=== PATIENT | male | born 1970 ===

== ENCOUNTER 2022-11-09 11:30 | Emergency (ER) | payer MEDICAID ==
[~2022-11-09] VITALS: Ht 180.3 cm; Wt 77.1 kg
[~2022-11-09 11:30] MED LIST: Cleocin HCl150 MG PO
== END 2022-11-09 17:24 | disposition home or self-care (01) ==
LOC: ER 11:30
DX: K46.9 Unspecified abdominal hernia without obstruction or gangrene (principal); F17.200 Nicotine dependence, unspecified, uncomplicated; Z88.0 Allergy status to penicillin
CPT/HCPCS: 76857; A9270

== ENCOUNTER 2022-12-25 17:41 | Emergency (ER) | payer OTHER ==
[~2022-12-25] VITALS: Ht 177.8 cm; Wt 77.1 kg
[2022-12-25] MEDS ORDERED: Cleocin HCl150 MG PO (17:48)
== END 2022-12-25 17:53 | disposition home or self-care (01) ==
LOC: ER 17:41
DX: K02.9 Dental caries, unspecified (principal)
CPT/HCPCS: 99283; A9270

== ENCOUNTER 2023-03-29 07:00 | Day surgery (SDC) | payer OTHER ==
[2023-03-29] VITALS (23 sets, daily range): BP systolic 96–144; BP diastolic 62–94
[~2023-03-29] VITALS: Ht 175.3 cm; Wt 78.9 kg
--- NOTE | 2023-03-29 07:25 | NUR ---
PATIENT STATES HE HAS POST-OP RIDE ARRANGED WITH [facility].
--- NOTE | 2023-03-29 14:24 | NUR ---
REPORT RECEIVED FROM TC COUGHLIN. VSS. PT ON SUPPLEMENTAL O2 VIA 3L NC. PT ABLE TO REPOSITION SELF IN BED. PT REQUESTING PO FLUIDS AND TOLERATING THEM WELL. PT REPORTS 4/10 DULL PAIN TO LOWER ABDOMEN. PT DENIES NAUSEA OR OTHER DISCOMFORTS AT THIS TIME. PT DRESSING C/D/I WITHOUT DRAINAGE, REDNESS, OR BLEEDING.
--- NOTE | 2023-03-29 15:24 | NUR ---
Patient up to Ambulate independently. Gait steady. VSS. Discharge instructions reviewed with patient. Patient verbalizes understanding. Copy given to patient to take home. Dressing to procedure site clean, dry, intact with no visible drainage, swelling, erythema or bruising noted. Patient States Post-Procedure ride home has been arranged. PT DENIES PAIN OR DISCOMFORT. Discharged via wheelchair to private car for ride home.
== END 2023-03-29 22:41 | disposition home or self-care (01) ==
LOC: ORSCMMR 07:00 → ORD 08:00 → ORSCMMR 08:00
PROVIDERS: Surgery
PROC: 0YU54JZ Supplement Right Inguinal Region with Synthetic Substitute, Percutaneous Endoscopic Approach (ICD-10-PCS; principal; 2023-03-29 08:00)
PROC: 0DNW4ZZ Release Peritoneum, Percutaneous Endoscopic Approach (ICD-10-PCS; principal; 2023-03-29 08:00)
PROC: 8E0W4CZ Robotic Assisted Procedure of Trunk Region, Percutaneous Endoscopic Approach (ICD-10-PCS; principal; 2023-03-29 08:00)
DX: K40.30 Unilateral inguinal hernia, with obstruction, without gangrene, not specified as recurrent (principal); K66.0 Peritoneal adhesions (postprocedural) (postinfection); F17.210 Nicotine dependence, cigarettes, uncomplicated
CPT/HCPCS: 49650; 49329; S2900; 88302; A9270; C1781; J0744; J1100; J2250; J2370; J2405; J2704; J2765; J2795; J3010; J7120

== ENCOUNTER 2023-11-05 22:13 | Emergency (ER) | payer OTHER ==
[~2023-11-05] VITALS: Ht 180.3 cm; Wt 79.4 kg
[2023-11-05 22:34] VITALS: BP 122/80
[2023-11-05] MEDS ORDERED: Cleocin HCl300 MG PO (23:02)
== END 2023-11-05 23:10 | disposition home or self-care (01) ==
LOC: ER 22:13
DX: L03.211 Cellulitis of face (principal); F17.290 Nicotine dependence, other tobacco product, uncomplicated; Z88.0 Allergy status to penicillin
CPT/HCPCS: 99283; A9270